=== PATIENT | male | born 1980 | race Hispanic/Latino ===

== ENCOUNTER → 2024-04-04 08:43 | Outpatient (CLI) | payer OTHER, SELFPAY ==
--- NOTE | 2024-04-04 08:45 | DI.RAD.S_ITS ---
PROCEDURE: FL SHOULDER INJECTION MR/CT LT INDICATIONS: PAIN IN LEFT SHOULDER COMPARISON: [facility], MR, MR SHOULDER LT W CON, 04/04/2024, 9:25. TECHNIQUE: The indications, alternatives, benefits, risks, and complications of the procedure were explained to the patient. Written informed consent was obtained and placed in the chart. The shoulder was examined fluoroscopically and a site for needle placement chosen for entry into the glenohumeral joint from an anterior approach. The skin was prepped and draped in a sterile fashion, and 1% lidocaine infiltrated from skin down to joint capsule. A spinal needle was inserted into the glenohumeral joint, and a small amount of iodinated contrast media injected to confirm intra-articular placement of the needle tip. This was followed by approximately 12 mL dilute solution of a gadolinium containing MR contrast agent. The needle was removed and a dressing was applied. The patient was given postprocedural instructions and sent to the MR suite for MR imaging. FINDINGS: A single fluoroscopic spot image demonstrates intra-articular location of injected iodinated contrast. IMPRESSION: Successful fluoroscopically guided administration of dilute Gadolinium solution into the shoulder joint for MR arthrogram. Dictated by: Marjan Atkinson M.D. on 04/04/2024 at 15:16 Approved by: Marjan Atkinson M.D. on 04/04/2024 at 15:16
--- NOTE | 2024-04-04 08:45 | DI.MRI.S_ITS ---
PROCEDURE: MR SHOULDER LT W CON INDICATIONS: PAIN IN LEFT SHOULDER TECHNIQUE: After the administration of 12 mL of dilute intra-articular Gadolinium contrast, oblique coronal T1 and T2 spin echo with fat saturation, oblique sagittal T1 spin echo with and without fat saturation, oblique sagittal T2 fast spin echo with fat saturation, axial T1 spin echo with fat saturation through the shoulder. COMPARISON: None. FINDINGS: Image quality: Excellent. Rotator cuff: Low-grade bursal surface partial thickness tear involving distal supraspinatus at its insertion on the humeral head is seen extending to musculotendinous junction. Distal infraspinatus tendinosis is seen. The subscapularis tendon is intact. No full-thickness rotator cuff tendon rupture. No rotator cuff muscle atrophy on sagittal images. Bones and bursae: No fracture or dislocation. There is [id number] acromioclavicular joint osteoarthritis with joint space narrowing, subchondral sclerosis and edema and downward osteophyte formation depressing the musculotendinous junction of supraspinatus. Type 1 acromion, without an os acromiale. Capsule and soft tissues: Contrast extension and fraying of superior anterior labrum is seen concerning for subtle superior anterior labral tear. Similar signal abnormality and contrast extension involving anterior inferior labrum is also seen. The glenohumeral ligaments appear intact. The long head of the biceps tendon demonstrates normal location and morphology. The rotator interval appears normal, without fibrosis. The coracohumeral ligament is of normal thickness. No intra-articular bodies. IMPRESSION: 1. Low-grade bursal surface partial-thickness tear involving distal supraspinatus extending to musculotendinous junction. Distal infraspinatus tendinosis. No full-thickness rotator cuff tendon rupture. No muscle atrophy. 2. [id number] acromioclavicular joint osteoarthritis. Possible contusion involving distal clavicle with marrow edema. No fracture or dislocation. No loose bodies. 3. Suggestion of superior anterior labral tear and anterior-inferior labral tear. Dictated by: Mart Love M.D. on 04/04/2024 at 15:03 Approved by: Mart Love M.D. on 04/04/2024 at 15:09
[2024-04-04] MEDS: LIDOCAINE 1% 20 ML INJ (10:10)
[2024-04-04] MEDS: SODIUM CHLORIDE 0.9 % 20 ML VIAL IV (10:11)
== END ==
PROVIDERS: PCP General Practice; Referring Provider General Practice; Visit Provider General Practice
DX: M75.112 Incomplete rotator cuff tear or rupture of left shoulder, not specified as traumatic (principal); M19.012 Primary osteoarthritis, left shoulder; M25.512 Pain in left shoulder
CPT/HCPCS: 23350; 73040; 73222; A9579; Q9967